=== PATIENT | female | born 1980 | race Caucasian/White ===

== ENCOUNTER → 2016-09-24 | Outpatient (CLI) | payer MEDICAID | LOC: BMCIMAGING 11:01 | PROVIDERS: ATTEND Internal Medicine Rheumatology | DX: M25.562 Pain in left knee (principal); D50.9 Iron deficiency anemia, unspecified; I73.00 Raynaud's syndrome without gangrene; M17.11 Unilateral primary osteoarthritis, right knee; R70.0 Elevated erythrocyte sedimentation rate; R76.0 Raised antibody titer; R76.8 Other specified abnormal immunological findings in serum | CPT/HCPCS: 82784-90; 86225-90; 86235-90; G0472 ==